=== PATIENT | male | born 1975 ===

== ENCOUNTER 2019-10-16 10:37 | Emergency (ER) | payer OTHER ==
[~2019-10-16] VITALS: Ht 175.3 cm; Wt 83.9 kg
[~2019-10-16 10:37] MED LIST: DORYX100 MG
== END 2019-10-16 14:31 | disposition home or self-care (01) ==
LOC: ER 10:37
DX: S29.012A Strain of muscle and tendon of back wall of thorax, initial encounter (principal); X50.9XXA Other and unspecified overexertion or strenuous movements or postures, initial encounter; Y93.89 Activity, other specified; Y92.092 Bedroom in other non-institutional residence as the place of occurrence of the external cause; Y99.8 Other external cause status

== ENCOUNTER 2021-05-27 12:47 | Outpatient (CLI) | payer OTHER | END 2021-05-27 13:05 | disposition home or self-care (01) | LOC: RAD 12:47 | PROVIDERS: ATTEND Internal Medicine Cardiovascular Disease | DX: M62.830 Muscle spasm of back (principal); M46.47 Discitis, unspecified, lumbosacral region ==